=== PATIENT | female | born 1995 | race Caucasian/White ===

== ENCOUNTER 2024-09-22 14:37 | Emergency (ER) | payer OTHER ==
[~2024-09-22] VITALS: Ht 152.4 cm; Wt 47.6 kg
[2024-09-22] MEDS: KETOROLAC 30 MG/ML 1ML VIAL IV ONE (16:21)
[2024-09-22 17:14] VITALS: BP 125/75; TEMP 98.2; O2SAT 100
== END 2024-09-22 17:20 | disposition home or self-care (01) ==
LOC: M ED 14:37 → EDBD 14:37 → M ED 17:20
DX: S83.92XA Sprain of unspecified site of left knee, initial encounter (principal); S93.402A Sprain of unspecified ligament of left ankle, initial encounter; W18.39XA Other fall on same level, initial encounter; Y92.89 Other specified places as the place of occurrence of the external cause; Y93.63 Activity, rugby; Y99.9 Unspecified external cause status; Z88.2 Allergy status to sulfonamides; Z91.013 Allergy to seafood; Z91.040 Latex allergy status
CPT/HCPCS: 73564; 73610; 96374; 99284; J1885